=== PATIENT | female | born 1965 | race Caucasian/White ===

== ENCOUNTER 2017-11-15 06:20 | Day surgery (SDC) | payer BC ==
[2017-11-15] MEDS ORDERED: LISI-515 PO (07:13)
[2017-11-15] MEDS ORDERED: NORV2.5T PO (07:13)
[2017-11-15] MEDS ORDERED: ASPI-516 CHEW (07:13)
[2017-11-15] MEDS ORDERED: METO1TAB9 PO (07:13)
[2017-11-15] MEDS ORDERED: CLON0.1T PO (07:13)
[2017-11-15] MEDS ORDERED: CLAR10CA3 PO (07:13)
[2017-11-15] MEDS ORDERED: GABA300C5 PO (07:13)
[2017-11-15] MEDS ORDERED: CITRTAB8 PO (07:13)
--- NOTE | 2017-11-15 11:20 | CT ---
cc: Cecilio Roberto MD, Evan D DATE: 11/15/2017 DATE OF TEST: 11/15/2017 PROCEDURE PERFORMED: Tilt table test. INDICATION FOR PROCEDURE: Syncope, evaluate for neurocardiogenic etiology. PROCEDURE TECHNIQUE: The patient underwent routine head-up tilt table testing with the use of sublingual nitroglycerin. The patient was monitored initially for 5 minutes supine. Blood pressures, heart rate, and sinus rhythm recorded. She was tilted head up to 80 degrees and continued observation. Blood pressure, heart rate, and rhythm was monitored for an additional 30 minutes. Following this, the patient was administered 0.4 mg sublingual nitroglycerin. At completion of the test, the patient was placed supine and recovered, and was given 500 mL of saline for hypotension. She tolerated the procedure well and was discharged to home in stable condition. FINDINGS: During head-up tilt table testing, initially the patient's blood pressure began to fall slowly throughout observation. Supine, her blood pressure is 120/78 mmHg, but fell progressively to 85/55 mmHg at 29 minutes. Heart rate increased from 67-85 beats per minute, sinus rhythm. The patient was then asymptomatic, but administered sublingual nitroglycerin and continued observation. Within 1 minute, the patient's blood pressure fell and was undetectable. Heart rate initially increased to 88, but then suddenly fell to 45 and the patient was placed supine and recovered quickly. She did lose consciousness briefly. No seizure activity was reported. DIAGNOSIS: Abnormal test with progressive orthostatic hypotension and vasovagal syncope. RECOMMENDATIONS: The patient's antihypertensive medication will require readjustment. I have recommended that she reduce her lisinopril dose in half to 10 mg daily. Continue amlodipine at 2.5 mg daily and continue her metoprolol succinate at 50 mg daily and followup has been arranged for repeat blood pressure and orthostatic measurements in 2 weeks. MD CHARLOTTE Oliva/MILIND , 11:00 AM , 11:18 AM
== END 2017-11-15 09:59 | disposition home or self-care (01) ==
LOC: HDOC 06:20 → HDIC 06:21 → HDOC 09:59
PROVIDERS: ATTEND Internal Medicine Interventional Cardiology
DX: R55 Syncope and collapse (principal)
CPT/HCPCS: 93660